=== PATIENT | female | born 1965 | race Caucasian/White ===

== ENCOUNTER → 2021-01-11 | Outpatient (CLI) | payer OTHER ==
[~2021-01-11] MED LIST: DECADRON6 MG PO; DRAMAMINE LESS25 MG PO; IBUPROFEN600 MG PO; VITAMIN C1000 M2 PO; ZITHROMAX250 MG PO
== END ==
LOC: KOH-I 08:00
DX: R94.5 Abnormal results of liver function studies (principal); K76.0 Fatty (change of) liver, not elsewhere classified
CPT/HCPCS: 76705

== ENCOUNTER 2021-10-25 12:56 | Observation (INO) | payer OTHER ==
[~2021-10-25] VITALS: Ht 157.5 cm; Wt 74.8 kg
[2021-10-25 14:31] LABS: HEMOGLOBIN 13.6 gm/dl (12.3-15.3); RED BLOOD COUNT 4.63 M/UL (4.00-5.10); WHITE BLOOD COUNT 5.7 K/UL (4.5-11.0)
[2021-10-25 15:04] LABS: BUN/CREATININE RATIO 19 (0-10)
[2021-10-25] MEDS ORDERED: ALENDRONATE SOD35 MG PO (16:49)
[2021-10-25] MEDS ORDERED: DRISDOL1250 MCG PO (16:49)
[2021-10-25] MEDS ORDERED: LISINOPRIL10 MG PO (16:49)
[2021-10-25] MEDS ORDERED: HYDROCHLOROTH12.5 MG PO (16:49)
[2021-10-25] MEDS ORDERED: PROTONIX 40 MG40 M1 PO (16:50)
[2021-10-25] MEDS ORDERED: MONTELUKAST SOD10 MG PO (16:50)
[2021-10-25] MEDS ORDERED: METFORMIN HCL500 MG PO (16:50)
[2021-10-25] MEDS ORDERED: MELOXICAM15 MG PO (16:50)
[2021-10-25] MEDS ORDERED: OMEGA-31000 MG PO (16:50)
[2021-10-25] MEDS ORDERED: LIPITOR TAB 2020 MG PO (16:51)
[2021-10-25] MEDS ORDERED: ONDANSETRON HCL4 MG PO (16:51)
[2021-10-25] MEDS ORDERED: NP THYROID30 MG PO (16:51)
[2021-10-25] MEDS ORDERED: OZEMPIC0.25 MG/0. SQ (16:51)
== END 2021-10-25 18:32 | disposition home or self-care (01) ==
LOC: ER1 12:56 → CDU 15:53
PROVIDERS: Emergency Medicine; ADMIT Internal Medicine
DX: R07.89 Other chest pain (principal); K21.9 Gastro-esophageal reflux disease without esophagitis; I10 Essential (primary) hypertension; E78.5 Hyperlipidemia, unspecified; E11.9 Type 2 diabetes mellitus without complications; Z88.2 Allergy status to sulfonamides
CPT/HCPCS: 71045; 80053; 82550; 82553; 84484; 85025; 93005; 99285; G0378